=== PATIENT | female | born 1995 | race Hispanic/Latino ===

== ENCOUNTER 2017-08-10 18:14 | Emergency (ER) | payer OTHER ==
[2017-08-10 18:23] VITALS: BP 117/73; PULSE 93; RESP 20; TEMP 98.9; O2SAT 100
[2017-08-10] MEDS ORDERED: Albuterol-Ipratrop 3 mg / 0.5 (3 ml) UD INH STA (18:38)
--- NOTE | 2017-08-10 19:17 | ED PDOC ---
HPI: SOB/CHF/COPD Time Seen by Provider: 08/10/17 18:25 Chief Complaint (Nursing): Cough, Cold, Congestion Chief Complaint (Provider): Shortness of Breath History Per: Patient History/Exam Limitations: no limitations Onset/Duration Of Symptoms: Days (x1) Current Symptoms Are (Timing): Still Present Additional Complaint(s): Linnea Kramer is a 22 year old female with a history of asthma that presents to the ED with a chief complaint of shortness of breath that she began to experience earlier today. Patient reports that she was recently treated for strep throat and was given Amoxicillin to treat it. Upon experiencing her shortness of breath, she used her inhaler, which she reports did not relieve her symptoms. Of Note: Patient states that she received vaccines for meningococcal meningitis and for influenza today. Past Medical History Reviewed: Historical Data, Nursing Documentation, Vital Signs Vital Signs: Last Vital Signs Temp 98.9 F 08/10/17 18:20 Pulse 93 H 08/10/17 18:20 Resp 20 08/10/17 18:20 BP 117/73 08/10/17 18:20 Pulse Ox 100 08/10/17 19:21 - Medical History PMH: Asthma - Family History Family History: States: Unknown Family Hx - Home Medications Home Medications: Ambulatory Orders Medication Instructions Recorded Albuterol HFA [Ventolin HFA 90 2 puff IH [id number] PRN #1 puff 03/07/15 mcg/actuation (8 g)] Albuterol 0.083% [Albuterol 0.083% 2.5 mg IH QID PRN #20 08/10/17 Inhal Maya (2.5 mg/3 ml) UD] predniSONE [predniSONE Tab] 20 mg PO DAILY #12 tab 08/10/17 - Allergies Allergies/Adverse Reactions: Allergies Allergy/AdvReac Type Severity Reaction Status Date / Time No Known Allergies Allergy Verified 07/07/15 16:27 Review of Systems Constitutional: Positive for: Fever (low-grade) ENT: Positive for: Throat Pain Respiratory: Positive for: Shortness of Breath - ECG O2 Sat by Pulse Oximetry: 100 (RA) Pulse Ox Interpretation: Normal Medical Decision Making Medical Decision Making: Impression: Shortness of Breath Plan: * Chest X-Ray * Alubterol 6 ml INH * Peak Flow Pre/Post Tx * Reevaluation CXR - Normal Scribe Attestation: Documented by Jenifer Vázquez, acting as a scribe for Tameka Almeida PA-C. Provider Scribe Attestation: All medical record entries made by the Scribe were at my direction and personally dictated by me. I have reviewed the chart and agree that the record accurately reflects my personal performance of the history, physical exam, medical decision making, and the department course for this patient. I have also personally directed, reviewed, and agree with the discharge instructions and disposition. Disposition - Clinical Impression Clinical Impression: Bronchitis - Patient ED Disposition Is Patient to be Admitted: No Counseled Patient/Family Regarding: Diagnosis, Need For Followup, Rx Given - Disposition Disposition: Routine/Home Disposition Time: 19:47 Condition: GOOD Prescriptions: Albuterol 0.083% [Albuterol 0.083% Inhal Maya (2.5 mg/3 ml) UD] 2.5 mg IH QID PRN #20 PRN Reason: Shortness Of Breath predniSONE [predniSONE Tab] 20 mg PO DAILY #12 tab Instructions: Acute Bronchitis (ED) Forms: [employer] ([place])
--- NOTE | 2017-08-11 08:03 | RAD ---
HISTORY: cough, sOB COMPARISON: Chest x-ray performed 03/07/15 TECHNIQUE: Chest PA and lateral FINDINGS: LUNGS: No focal consolidation. Please note that chest x-ray has limited sensitivity for the detection of pulmonary masses. PLEURA: No significant pleural effusion identified. No definite pneumothorax . CARDIOVASCULAR: The cardiomediastinal silhouette appears within normal limits of size. OSSEOUS STRUCTURES: No acute osseous abnormality identified. VISUALIZED UPPER ABDOMEN: Unremarkable. OTHER FINDINGS: None. IMPRESSION: No focal consolidation, significant pleural effusion, or definite pneumothorax identified.
== END 2017-08-10 20:03 | disposition home or self-care (01) ==
LOC: H.ER 18:14
DX: J20.9 Acute bronchitis, unspecified (principal)